=== PATIENT | female | born 1930 | race Caucasian/White ===

== ENCOUNTER 2017-08-08 12:14 | Inpatient (IN) | payer MEDICARE ==
[~2017-08-08] VITALS: Ht 165.1 cm; Wt 70.8 kg
[2017-08-08 09:00] VITALS: BP 145/79
[2017-08-08] MEDS ORDERED: LEVO50TA8 PO (12:27)
[2017-08-08] MEDS ORDERED: LATA2.5D7 EACHEYE (12:27)
[2017-08-08] MEDS ORDERED: GUAI100S27 PO (12:27)
[2017-08-08] MEDS ORDERED: ACET-2154 PO (12:27)
[2017-08-08 12:56] LABS: BASOPHILS % (AUTO) 0.7 % (0.0-2.0); EOSINOPHILS % (AUTO) 0.2 % (0.0-7.0); HEMOGLOBIN 14.6 g/dL (10.9-14.3); LYMPHOCYTES # (AUTO) 1.3 K/uL (20.0-40.0); LYMPHOCYTES % (AUTO) 19.4 % (20.5-51.5); MEAN CORPUSCULAR HEMOGLOBIN 31.8 uug (24.7-32.8); MEAN CORPUSCULAR HGB CONC 34 g/dL (32.3-35.6); MONOCYTES # (AUTO) 0.7 K/uL (2.0-10.0); MONOCYTES % (AUTO) 9.7 % (0.0-11.0); NEUTROPHILS # (AUTO) 4.7 K/uL (1.8-8.9); PLATELET COUNT (AUTO) 241 K/uL (179-408); RED BLOOD CELL COUNT(AUTO) 4.57 MIL/uL (3.63-4.92); WHITE BLOOD COUNT (AUTO) 6.8 K/uL (3.8-11.8)
[2017-08-08 13:06] LABS: CARBON DIOXIDE 27 mmol/L (21-32); CHLORIDE 101 mmol/L (98-107); GLUCOSE 91 mg/dL (74-106); POTASSIUM 3.5 mmol/L (3.5-5.1); UREA NITROGEN, BLOOD 15 mg/dL (7-18)
[2017-08-08 13:12] LABS: ALANINE AMINOTRANSFERASE 19 U/L (14-59); ALKALINE PHOSPHATASE 62 U/L (50-136); ASPARTATE AMINOTRANSFERASE 23 U/L (15-37); BILIRUBIN,DIRECT 0.1 mg/dL (0.0-0.2); BILIRUBIN,TOTAL 0.4 mg/dL (0.2-1.0); TOTAL PROTEIN, SERUM 6.6 g/dL (6.4-8.2)
--- NOTE | 2017-08-08 14:40 | NUR ---
PT REFUSED BHUPENDRA SIMONS MD NOTIFIED
[2017-08-08] MEDS ORDERED: IV NS 1000 ML 1,000 ML IV ONE (14:45)
--- NOTE | 2017-08-08 14:45 | NUR ---
PT VOIDED ON BED EDDY,SENT THE URINE TO LAB
--- NOTE | 2017-08-08 15:00 | NUR ---
PT TOOK THE HEPLOCK OUT, GETTING AGITATED.
[2017-08-08 15:22] LABS: *BILIRUBIN,URIN NEGATIVE (NEGATIVE); *BLOOD, URINE 3+ (NEGATIVE); *CLARITY,URINE SLIGHTLY CLOUDY (CLEAR); *COLOR,URINE YELLOW (YELLOW); *KETONES,URINE 2+ (NEGATIVE); *PROTEIN,URINE 1+ (NEGATIVE); LEUKOCYTE ESTERASE ,URINE NEGATIVE (NEGATIVE); NITRITE, URINE NEGATIVE (NEGATIVE); UGLUCOSE NEGATIVE (NEGATIVE)
[2017-08-08] MEDS ORDERED: LORAZEPAM 2 MG/1 ML VIAL ONE (15:28)
[2017-08-08] MEDS ORDERED: LORAZEPAM 2 MG/1 ML VIAL IV ONE (15:30)
[2017-08-08 15:33] LABS: WBC,URINE 0-3 /HPF (0-3)
[2017-08-08 15:34] LABS: BACTERIA,URINE MODERATE /HPF (NONE SEEN); SQUAMOUS EPITHELIAL CELL,UR FEW /HPF (NONE SEEN)
--- NOTE | 2017-08-08 15:40 | NUR ---
PT TRANSFERD TO FLOOR, PT MORE COMFORTABLE. FLOOR NOTIFIED ABOUT PT BEING FALL RISK.
[2017-08-08 16:22] VITALS: BP 115/94
[2017-08-08] MEDS ORDERED: ACETAMINOPHEN 325 MG TABLET PO PRN (16:45)
[2017-08-08] MEDS ORDERED: ACETAMINOPHEN 650 MG SUPP.RECT RC PRN (17:15)
[2017-08-08] MEDS ORDERED: MORPHINE SULFATE 2 MG/1 ML DISP.SYRIN IV PRN (17:15)
[2017-08-08] MEDS ORDERED: ONDANSETRON 4 MG/2 ML VIAL IV PRN (17:15)
[2017-08-08] MEDS ORDERED: MORPHINE SULFATE 4 MG/1 ML DISP.SYRIN IV PRN (18:15)
[2017-08-08] MEDS: POTASSIUM CHLORIDE 20 MEQ in IV D5/ 0.9% NACL 1,000 ML IV PRN (18:21)
--- NOTE | 2017-08-08 18:29 | NUR ---
PHARMACY CLINICAL NOTES ( VANCOMYCIN DOSING) S: 87 yo female , resident of assisted living; who experienced syncope and loss of conciousness today who is running a temp of 101.7. MD ordered Zosyn and Vancomycin as empiric therapy O: BUN/SCR 15/1.0; WBC 6.8, TEMP 101.7; dosing wt 71 kg A/P: will dose vancomycin as 1000 mg IVPB q24h , estimated peak of 36 and trough of 17. RX will continue to monitor renal fxn and levels(prior to 4th dose) and adjust the dose if necessary.
[2017-08-08 19:00] VITALS: BP 169/76
--- NOTE | 2017-08-08 20:00 | NUR ---
PATIENT IS AWAKE IN BED, AAOX1 CONFUSED AND VERY FORGETFUL. NO S/S OF PAIN OR ACUTE DISTRESS ON ASSESSMENT.1:1 SITTER AT BEDSIDE FOR SAFETY CONCERNS. WILL CONTINUE TO MONITOR PATIENT
[2017-08-08] MEDS: LATANOPROST OPHT DROP 2.5 ML BOTTLE EACHEYE SCH (20:14)
[2017-08-08] MEDS: VANCOMYCIN IV 1 G in PREMIXED 0 EACH IV SCH (20:14)
[2017-08-08] MEDS: PIPERACILLIN/TAZOBACTAM/D5W 3.375 G in PREMIXED 1 EACH IV SCH (21:57)
[2017-08-09] VITALS: BP 129/69
[2017-08-09 04:00] VITALS: BP 135/80
[2017-08-09] MEDS: PIPERACILLIN/TAZOBACTAM/D5W 3.375 G in PREMIXED 1 EACH IV SCH ×3 (05:12→21:59)
[2017-08-09] MEDS ORDERED: OLANZAPINE 10 MG VIAL IM SCH (06:00)
--- NOTE | 2017-08-09 06:30 | NUR ---
PATIENT SLEPT ON AND OFF THROUGH THE SHIFT. CONTINUES TO BE CONFUSED REDIRECTABLE AT TIMES. NO S/S OF PAIN OR ACUTE DISTRESS ON THIS SHIFT. ZYPREXA HELD, PATIENT IS CALM AT PRESENT, WILL ENDORSE TO NEXT SHIFT. SITTER REMAINS AT BEDSIDE WITH CLOSE MONITORING OF PATIENT. SAFETY MEASURES IN PLACE
[2017-08-09 06:38] LABS: BASOPHILS # (AUTO) 0.1 K/uL (0.0-8.0); BASOPHILS % (AUTO) 0.7 % (0.0-2.0); EOSINOPHILS % (AUTO) 0.3 % (0.0-7.0); HEMATOCRIT 39.9 % (31.2-41.9); HEMOGLOBIN 13.9 g/dL (10.9-14.3); LYMPHOCYTES # (AUTO) 2.2 K/uL (20.0-40.0); LYMPHOCYTES % (AUTO) 29.4 % (20.5-51.5); MEAN CORPUSCULAR HEMOGLOBIN 32.6 uug (24.7-32.8); MEAN CORPUSCULAR HGB CONC 35 g/dL (32.3-35.6); MEAN CORPUSCULAR VOLUME 93.6 fL (75.5-95.3); MONOCYTES # (AUTO) 0.7 K/uL (2.0-10.0); MONOCYTES % (AUTO) 9.9 % (0.0-11.0); NEUTROPHILS # (AUTO) 4.4 K/uL (1.8-8.9); NEUTROPHILS % (AUTO) 59.7 % (38.5-71.5); PLATELET COUNT (AUTO) 217 K/uL (179-408); RED BLOOD CELL COUNT(AUTO) 4.26 MIL/uL (3.63-4.92); WHITE BLOOD COUNT (AUTO) 7.3 K/uL (3.8-11.8)
[2017-08-09 06:42] LABS: ALANINE AMINOTRANSFERASE 17 U/L (14-59); ALKALINE PHOSPHATASE 51 U/L (50-136); ASPARTATE AMINOTRANSFERASE 28 U/L (15-37); BILIRUBIN,TOTAL 0.5 mg/dL (0.2-1.0); CARBON DIOXIDE 24 mmol/L (21-32); CHLORIDE 101 mmol/L (98-107); CHOLESTEROL 168 mg/dL (<200); CREATININE 0.9 mg/dL (0.6-1.3); GLUCOSE 111 mg/dL (74-106); HDL CHOLESTEROL 55 mg/dL (40-60); MAGNESIUM 1.8 mg/dL (1.8-2.4); PHOSPHOROUS 2.9 mg/dL (2.5-4.9); POTASSIUM 3.5 mmol/L (3.5-5.1); TOTAL PROTEIN, SERUM 5.9 g/dL (6.4-8.2); TRIGLYCERIDES 75 MG/DL (30-150); UREA NITROGEN, BLOOD 12 mg/dL (7-18)
[2017-08-09 06:51] LABS: THYROID STIMULATING HORMONE 4.653 mIU/mL (0.358-3.740)
[2017-08-09] MEDS: PANTOPRAZOLE SODIUM 40 MG VIAL IV SCH (08:46)
--- NOTE | 2017-08-09 09:39 | NUR ---
PHARMACY CLINICAL NOTES ( VANCOMYCIN DOSING) S: 87 yo female , resident of assisted living; who experienced syncope and loss of conciousness today who is running a temp of 101.7. MD ordered Zosyn and Vancomycin as empiric therapy O: BUN/SCR 12/0.9; WBC 7.3, TEMP 99.1; dosing wt 71 kg A/P: renal function remains stable, will continue vancomycin as 1000 mg IVPB q24h , estimated peak of 36 and trough of 17. 2nd dose tonight at 1900. Will check trough before 4th scheduled dose (not ordered yet). Will follow
[2017-08-09] MEDS: POTASSIUM CHLORIDE 20 MEQ in IV D5/ 0.9% NACL 1,000 ML IV PRN (10:50)
[2017-08-09 12:20] VITALS: BP 126/70
[2017-08-09] MEDS ORDERED: BARIUM SULFATE 450 ML ORAL.SUSP ONE (13:32)
[2017-08-09 16:00] VITALS: BP 136/67
--- NOTE | 2017-08-09 18:15 | NUR ---
Patient agitated, about to be brought to CT scan but patient had episode of 2 RUNS OF PSVT 1 MIN APART WITH VENTRICULAR BIGEMINY. Patient is alert, in no distress, no c/o of chest pain/pain. Patient was standing up removing her diaper. Assisted patient back to bed, reoriented, calmed her down. MD notified. No new orders received. Patient's VS BP 128/68, HR 103, 92% RA, RR 20. Will continue to monitor. 1:1 sitter provided for safety
[2017-08-09 18:30] VITALS: BP 128/68
--- NOTE | 2017-08-09 18:52 | NUR ---
Patient had episodes of 3 loose, watery bowel movement. Cdifficile Test Requisition done. Will endorse to oncoming shift RN.
[2017-08-09 19:00] VITALS: BP 136/77
[2017-08-09] MEDS: VANCOMYCIN IV 1 G in PREMIXED 0 EACH IV SCH ×2 (19:52→20:21)
--- NOTE | 2017-08-09 20:00 | NUR ---
PATIENT IS AWAKE IN BED. AAOX2 WITH CONFUSION. DENIES PAIN OR ANY DISTRESS ON ASSESSMENT. NO C/O OF DIZZINESS OR FEELING FAINT. SAFETY MEASURES IN PLACE, SITTER AT BEDSIDE WITH CLOSE MONITORING OF PATIENT.
[2017-08-09] MEDS: LATANOPROST OPHT DROP 2.5 ML BOTTLE EACHEYE SCH (20:18)
[2017-08-10] VITALS: BP 115/65
--- NOTE | 2017-08-10 00:28 | NUR ---
PATIENT WAS FOUND WITH TUBE CLEANER HOLDING HER IN THE BATHROOM. TUBE CLEANER STATED THAT PATIENT ' PASSED OUT WHILE WAS BEING ASSISTED TO WASH HER HANDS IN THE BATHROOM. PATIENT WAS ASSISTED BACK TO BED. VSS SIGNS WERE ASSESSED & STABLE BP 103/67, ME 77. RR 18, O2 SAT 95%. MD MANAGER FLIGHT OPERATIONS, NURSING IT HELP DESK MANAGER, CHARGE NURSE NOTIFIED. PATIENT WAS ASSESSED Q 15 MINUTES FOR AN HOUR, AND CONTINUES TO BE CLOSELY MONITORED.
--- NOTE | 2017-08-10 02:08 | NUR ---
PATIENT IS ASLEEP BUT EASILY AROUSABLE & IN STABLE CONDITION. PATIENT STATES " IM OK" WHEN ASKED HOW SHE WAS FEELING. NO FURTHER CHANGES IN STATUS WILL CONTINUE TO MONITOR PATIENT
[2017-08-10 04:00] VITALS: BP 103/70
[2017-08-10] MEDS: PIPERACILLIN/TAZOBACTAM/D5W 3.375 G in PREMIXED 1 EACH IV SCH ×2 (05:08→14:10)
--- NOTE | 2017-08-10 06:19 | NUR ---
PATIENT SLEPT ON & OFF ON THIS SHIFT. DENIES DIZZINESS OR FEELING OF FAINTNESS AT PRESENT. PATIENT IN STABLE HEMODYNAMIC STATUS, VSS ARE STABLE. SITTER AT BEDSIDE MONITORING FOR SAFETY CONCERNS. NO FURTHER CHANGES AT THIS TIME
[2017-08-10 08:00] VITALS: BP_SYST 107; BP_SYST 109; BP_SYST 127; BP_SYST 129; BP_DIAS 60; BP_DIAS 66; BP_DIAS 74
[2017-08-10] MEDS ORDERED: BARIUM SULFATE 450 ML ORAL.SUSP ONE (08:33)
[2017-08-10] MEDS ORDERED: SWABABLE VALVE TRANSFER SET EA MC ONE (08:33)
[2017-08-10] MEDS ORDERED: IV NORMAL SALINE 100 ML ONE (08:33)
[2017-08-10] MEDS ORDERED: IOHEXOL 300MG/ML 100 ML INFUS..BTL ONE (08:33)
[2017-08-10] MEDS: PANTOPRAZOLE SODIUM 40 MG VIAL IV SCH (09:34)
[2017-08-10 11:26] VITALS: BP 137/81
--- NOTE | 2017-08-10 14:41 | NUR ---
PHARMACY CLINICAL NOTES ( VANCOMYCIN DOSING) S: 87 yo female , resident of assisted living; who experienced syncope and loss of consciousness who is running a temp of 101.7(suspected infection). MD ordered Zosyn and Vancomycin as empiric therapy O: BUN/SCR 12/0.9(08/09); WBC 7.3(08/09), TEMP 99.3; dosing wt 71 kg A/P: Will continue vancomycin as 1000 mg IVPB q24h , estimated peak of 36 and trough of 17. 3rd dose tonight at 1900. Will check trough before 4th scheduled dose (not ordered yet). Will follow
[2017-08-10] MEDS ORDERED: LEVO500T2 PO (16:06)
[2017-08-10 16:12] VITALS: BP 145/76
--- NOTE | 2017-08-10 16:30 | NUR ---
Pt arranged to go back to [facility] per case management. Pt's daughter aware of discharge back to [facility] assisted living. Pt is in no acute distress. Pt remains very confused and forgetfull. Picture taken of redness on left arm. IV d/c as ordered.
== END 2017-08-10 16:24 | DRG 193 ==
LOC: ER 12:14 → TELE 15:31
PROVIDERS: ADMIT Internal Medicine; ATTEND Internal Medicine
DX: J18.9 Pneumonia, unspecified organism (principal); G92 Toxic encephalopathy; N39.0 Urinary tract infection, site not specified; F05 Delirium due to known physiological condition; R55 Syncope and collapse; F03.90 Unspecified dementia, unspecified severity, without behavioral disturbance, psychotic disturbance, mood disturbance, and anxiety; E07.9 Disorder of thyroid, unspecified; R56.9 Unspecified convulsions; A08.4 Viral intestinal infection, unspecified; E03.9 Hypothyroidism, unspecified; Z87.891 Personal history of nicotine dependence; Z91.81 History of falling; H40.9 Unspecified glaucoma
CPT/HCPCS: 36415; 70030-TC; 70450; 71045; 83735; 84100; 84443; 85025; 85730; 87086; 93005; 95819; A4663; C1758; C9113; J2060; J2270; J2543; J3370; J3480; J3490; J7030; J7042; Q9951; Q9967

== ENCOUNTER 2017-08-27 18:42 | Inpatient (IN) | payer MEDICARE ==
[~2017-08-27] VITALS: Ht 162.6 cm; Wt 64.9 kg
[~2017-08-27 18:42] MED LIST: ACET-2154 PO; GUAI100S27 PO; LATA2.5D7 EACHEYE; LEVO500T2 PO; LEVO50TA8 PO
[2017-08-27] MEDS ORDERED: ASPIRIN 325 MG TABLET ONE (18:59)
[2017-08-27] MEDS ORDERED: NITROGLYCERIN 0.4 MG/TAB BOTTLE SL ONE ×2 (18:59→19:00)
[2017-08-27] MEDS ORDERED: ASPIRIN 325 MG TABLET PO ONE (19:00)
[2017-08-27 19:13] LABS: BASOPHILS # (AUTO) 0.1 K/uL (0.0-8.0); BASOPHILS % (AUTO) 0.7 % (0.0-2.0); EOSINOPHILS # (AUTO) 0.2 K/uL (0.0-0.7); HEMATOCRIT 36.7 % (31.2-41.9); HEMOGLOBIN 12.8 g/dL (10.9-14.3); LYMPHOCYTES # (AUTO) 3.1 K/uL (20.0-40.0); LYMPHOCYTES % (AUTO) 28.9 % (20.5-51.5); MEAN CORPUSCULAR HEMOGLOBIN 32.9 uug (24.7-32.8); MEAN CORPUSCULAR HGB CONC 35 g/dL (32.3-35.6); MEAN CORPUSCULAR VOLUME 94.3 fL (75.5-95.3); MONOCYTES # (AUTO) 0.6 K/uL (2.0-10.0); MONOCYTES % (AUTO) 5.9 % (0.0-11.0); NEUTROPHILS # (AUTO) 6.8 K/uL (1.8-8.9); NEUTROPHILS % (AUTO) 62.5 % (38.5-71.5); PLATELET COUNT (AUTO) 277 K/uL (179-408); RED BLOOD CELL COUNT(AUTO) 3.89 MIL/uL (3.63-4.92); WHITE BLOOD COUNT (AUTO) 10.8 K/uL (3.8-11.8)
[2017-08-27 19:22] LABS: CARBON DIOXIDE 26 mmol/L (21-32); CHLORIDE 104 mmol/L (98-107); GLUCOSE 159 mg/dL (74-106); POTASSIUM 3.5 mmol/L (3.5-5.1); UREA NITROGEN, BLOOD 19 mg/dL (7-18)
[2017-08-27 19:33] LABS: ALANINE AMINOTRANSFERASE 15 U/L (14-59); ALKALINE PHOSPHATASE 71 U/L (50-136); ASPARTATE AMINOTRANSFERASE 12 U/L (15-37); BILIRUBIN,DIRECT 0.1 mg/dL (0.0-0.2); BILIRUBIN,TOTAL 0.2 mg/dL (0.2-1.0); TOTAL PROTEIN, SERUM 5.9 g/dL (6.4-8.2)
[2017-08-27] MEDS ORDERED: NITROGLYCERIN OINT 1 GM PACKET TP ONE ×2 (19:45→19:55)
[2017-08-27 21:00] VITALS: BP 132/48
[2017-08-28] VITALS (24 sets, daily range): BP systolic 51–139; BP diastolic 24–87
[2017-08-28] MEDS ORDERED: LORAZEPAM 2 MG/1 ML VIAL IV ONE (01:45)
[2017-08-28] MEDS ORDERED: ONDANSETRON 4 MG/2 ML VIAL IV PRN (08:30)
[2017-08-28] MEDS ORDERED: MAGNESIUM HYDROXIDE 30 ML LIQUID UDC PO PRN (08:30)
[2017-08-28] MEDS ORDERED: Z GUARD REMEDY PASTE 57 GM TUBE TOP PRN (08:30)
[2017-08-28] MEDS ORDERED: HYDROCODONE/APAP 5-325MG TABLET PO PRN (08:30)
[2017-08-28] MEDS ORDERED: MORPHINE SULFATE 4 MG/1 ML DISP.SYRIN IV PRN (08:30)
[2017-08-28] MEDS ORDERED: ACETAMINOPHEN 325 MG TABLET PO PRN ×2 (08:30→11:30)
[2017-08-28 10:00] LABS: BASOPHILS % (AUTO) 0.3 % (0.0-2.0); HEMATOCRIT 38.7 % (31.2-41.9); HEMOGLOBIN 13.2 g/dL (10.9-14.3); LYMPHOCYTES # (AUTO) 1.6 K/uL (20.0-40.0); LYMPHOCYTES % (AUTO) 14.5 % (20.5-51.5); MEAN CORPUSCULAR HEMOGLOBIN 32.4 uug (24.7-32.8); MEAN CORPUSCULAR HGB CONC 34 g/dL (32.3-35.6); MEAN CORPUSCULAR VOLUME 94.9 fL (75.5-95.3); MONOCYTES # (AUTO) 0.7 K/uL (2.0-10.0); MONOCYTES % (AUTO) 6.4 % (0.0-11.0); NEUTROPHILS # (AUTO) 8.7 K/uL (1.8-8.9); NEUTROPHILS % (AUTO) 78.8 % (38.5-71.5); PLATELET COUNT (AUTO) 255 K/uL (179-408); RED BLOOD CELL COUNT(AUTO) 4.08 MIL/uL (3.63-4.92)
[2017-08-28 10:10] LABS: CARBON DIOXIDE 26 mmol/L (21-32); CHLORIDE 106 mmol/L (98-107); CHOLESTEROL 209 mg/dL (<200); CREATININE 0.7 mg/dL (0.6-1.3); GLUCOSE 113 mg/dL (74-106); HDL CHOLESTEROL 64 mg/dL (40-60); TRIGLYCERIDES 100 MG/DL (30-150); UREA NITROGEN, BLOOD 22 mg/dL (7-18)
[2017-08-28] MEDS ORDERED: IV NS 1000 ML 1,000 ML IV PRN (11:30)
[2017-08-28] MEDS ORDERED: GUAIFENESIN SUGAR FREE 100 MG/5 ML UDC PO PRN (11:30)
[2017-08-28] MEDS ORDERED: SWABABLE VALVE TRANSFER SET EA MC ONE (17:34)
[2017-08-28] MEDS ORDERED: NORMAL SALINE FLUSH 10 ML DISP.SYRIN ONE (17:34)
[2017-08-28] MEDS ORDERED: IOHEXOL 350 100 ML INFUS..BTL ONE (17:34)
[2017-08-28] MEDS ORDERED: IV NORMAL SALINE 0 ML ONE (17:34)
[2017-08-28] MEDS ORDERED: PROPOFOL 100 ML ONE (18:22)
[2017-08-28] MEDS ORDERED: PROPOFOL 100 ML IV PRN (18:30)
[2017-08-28 18:31] LABS: BASOPHILS # (AUTO) 0.1 K/uL (0.0-8.0); BASOPHILS % (AUTO) 0.9 % (0.0-2.0); EOSINOPHILS % (AUTO) 0.3 % (0.0-7.0); HEMATOCRIT 40.2 % (31.2-41.9); HEMOGLOBIN 12.8 g/dL (10.9-14.3); LYMPHOCYTES # (AUTO) 4.3 K/uL (20.0-40.0); LYMPHOCYTES % (AUTO) 35.1 % (20.5-51.5); MEAN CORPUSCULAR HEMOGLOBIN 32.1 uug (24.7-32.8); MEAN CORPUSCULAR HGB CONC 32 g/dL (32.3-35.6); MEAN CORPUSCULAR VOLUME 101.2 fL (75.5-95.3); MONOCYTES # (AUTO) 0.7 K/uL (2.0-10.0); MONOCYTES % (AUTO) 5.8 % (0.0-11.0); NEUTROPHILS # (AUTO) 7.1 K/uL (1.8-8.9); NEUTROPHILS % (AUTO) 57.9 % (38.5-71.5); PLATELET COUNT (AUTO) 239 K/uL (179-408); RED BLOOD CELL COUNT(AUTO) 3.97 MIL/uL (3.63-4.92); WHITE BLOOD COUNT (AUTO) 12.3 K/uL (3.8-11.8)
[2017-08-28 18:41] LABS: CARBON DIOXIDE 18 mmol/L (21-32); CHLORIDE 104 mmol/L (98-107); CREATININE 1.1 mg/dL (0.6-1.3); GLUCOSE 189 mg/dL (74-106); POTASSIUM 3.9 mmol/L (3.5-5.1); UREA NITROGEN, BLOOD 23 mg/dL (7-18)
[2017-08-28] MEDS ORDERED: NOREPINEPHRINE BITARTRATE 16 MG in IV DEXTROSE 5% 500 ML IV PRN (18:45)
[2017-08-28 20:26] LABS: BAND % (MANUAL) 8 % (0-10); LYMPHOCYTES % (MANUAL) 36 % (20-40); MONOCYTES % (MANUAL) 5 % (2-10); NEUTROPHILS % (MANUAL) 51 % (42-75)
[2017-08-28] MEDS: NOREPINEPHRINE BITARTRATE 16 MG in IV DEXTROSE 5% 500 ML IV PRN (20:35)
[2017-08-28] MEDS ORDERED: PHENYLEPHRINE IV 20 MG in IV DEXTROSE 5% 250 ML IV PRN ×2 (20:45→21:00)
[2017-08-28] MEDS ORDERED: LATANOPROST OPHT DROP 2.5 ML BOTTLE EACHEYE SCH (21:00)
[2017-08-28] MEDS ORDERED: ATORVASTATIN 10 MG TABLET PO SCH (21:00)
[2017-08-28 21:23] LABS: ABG BASE EXCESS -10.2 mmol/L; ABG HCO3 14.9 mmol/L; ABG PCO2 30.9 mmHg (35.0-45.0); ABG PH 7.301 (7.350-7.450); ABG PO2 286.5 mmHg (75.0-100.0); ABG SITE RIGHT RADIAL; ABG TOTAL HEMOGLOBIN 13.7 G/dL (12.0-16.0); COHb 0.6 % (0.5-1.5); MetHb 0.3 % (0.0-1.5); O2Hb 98.8 % (94.0-97.0); VENT MODE VENT - A/C; VT, ABG 500 mL
[2017-08-29] VITALS (16 sets, daily range): BP systolic 55–128; BP diastolic 31–90
[2017-08-29] MEDS ORDERED: PHENYLEPHRINE 10 MG/1 ML VIAL ONE (02:45)
[2017-08-29] MEDS: NOREPINEPHRINE BITARTRATE 16 MG in IV DEXTROSE 5% 500 ML IV PRN (03:22)
[2017-08-29] MEDS ORDERED: LEVOTHYROXINE SODIUM 50 MCG TABLET PO SCH (07:00)
[2017-08-29] MEDS ORDERED: ASPIRIN EC 81 MG TABLET.DR PO SCH (09:00)
[2017-08-29] MEDS ORDERED: ASPIRIN 300 MG RECTAL SUPP RC SCH (09:00)
== END 2017-08-29 08:26 | disposition expired | DRG 64 ==
LOC: ER 18:44 → TELE 20:28 → CCU 08-28 18:00
PROVIDERS: ADMIT Nurse Practitioner Acute Care; ATTEND Nurse Practitioner Acute Care
PROC: 0BH17EZ Insertion of Endotracheal Airway into Trachea, Via Natural or Artificial Opening (ICD-10-PCS; principal; 2017-08-28)
PROC: 5A1945Z Respiratory Ventilation, 24-96 Consecutive Hours (ICD-10-PCS; 2017-08-28)
PROC: 4A00X4Z Measurement of Central Nervous Electrical Activity, External Approach (ICD-10-PCS; 2017-08-28)
PROC: 06HM33Z Insertion of Infusion Device into Right Femoral Vein, Percutaneous Approach (ICD-10-PCS; 2017-08-29)
DX: I63.40 Cerebral infarction due to embolism of unspecified cerebral artery (principal); N17.0 Acute kidney failure with tubular necrosis; J96.00 Acute respiratory failure, unspecified whether with hypoxia or hypercapnia; I25.119 Atherosclerotic heart disease of native coronary artery with unspecified angina pectoris; Z51.5 Encounter for palliative care; Z66 Do not resuscitate; G30.9 Alzheimer's disease, unspecified; F02.80 Dementia in other diseases classified elsewhere, unspecified severity, without behavioral disturbance, psychotic disturbance, mood disturbance, and anxiety; H40.9 Unspecified glaucoma; E03.9 Hypothyroidism, unspecified; Z87.81 Personal history of (healed) traumatic fracture; Z91.81 History of falling; Z87.891 Personal history of nicotine dependence; Z79.899 Other long term (current) drug therapy; G45.4 Transient global amnesia; Z87.440 Personal history of urinary (tract) infections; I44.4 Left anterior fascicular block; R40.2434 Glasgow coma scale score 3-8, 24 hours or more after hospital admission; R07.9 Chest pain, unspecified; R29.810 Facial weakness
CPT/HCPCS: 36415; 36600; 70030-TC; 70450; 71045; 82533; 84443; 85025; 85730; 86850; 86900; 86901; 93005; 94002; 94640; A4663; C1751; J2060; J2370; J3490; J7030; J7050; J7060; Q9967